=== PATIENT | female | born 1945 | race Caucasian/White ===

== ENCOUNTER 2018-12-16 09:16 | Inpatient (IN) | payer MEDICARE ==
[~2018-12-16] VITALS: Ht 157.5 cm; Wt 81.2 kg
[2018-12-17 07:13] VITALS: BP 124/66
== END 2018-12-17 10:20 | disposition home or self-care (01) | DRG 519 ==
LOC: OUT 09:16 → 4NOR 14:25 → OUT 14:34 → 4NOR 14:34 → DCLOUNGE 12-17 10:10
PROVIDERS: ADMIT Neurological Surgery; ATTEND Neurological Surgery
PROC: 00NY0ZZ Release Lumbar Spinal Cord, Open Approach (ICD-10-PCS; principal; 2018-12-16)
PROC: 01NB0ZZ Release Lumbar Nerve, Open Approach (ICD-10-PCS; 2018-12-16)
PROC: 0SH004Z Insertion of Internal Fixation Device into Lumbar Vertebral Joint, Open Approach (ICD-10-PCS; 2018-12-16)
DX: M43.16 Spondylolisthesis, lumbar region (principal); G95.29 Other cord compression; M48.061 Spinal stenosis, lumbar region without neurogenic claudication; G47.33 Obstructive sleep apnea (adult) (pediatric); G89.29 Other chronic pain; Z96.643 Presence of artificial hip joint, bilateral; Z88.0 Allergy status to penicillin; Z79.899 Other long term (current) drug therapy; M54.16 Radiculopathy, lumbar region
CPT/HCPCS: 72100; G0378; J0690; J1100; J1170; J2250; J2270; J2704; J3010; Q0162; J0330; J7120